=== PATIENT | female | born 1975 | race Caucasian/White ===

== ENCOUNTER → 2019-12-29 | Outpatient (CLI) | payer BC, OTHER ==
[~2019-12-29] VITALS: Ht 170.2 cm; Wt 77.1 kg
[~2019-12-29] MED LIST: CLARITIN10 MG PO; FLONASE 0.05%50 MCG NASAL; LISINOPRIL2.5 MG PO; NEURONTIN100 MG PO; NEURONTIN300 MG PO; OXYCODONE-ACET1 EACH PO; STOOL SOFTENER100 M1 PO; TIZANIDINE HCL2 M1 PO; ULTRAM50 MG PO
[2019-12-29 14:57] VITALS: BP 129/83
--- NOTE | 2019-12-29 15:46 | NUR ---
Pain Clinic Assessment: 1. History of Osteoarthritis: Not Applicable History of Rheumatoid Arthritis: Not Applicable 2. Height: 5 ft. 7 in. 170.2 cm. Weight: 170.0 lb. oz. 77.112 kg. Patient's BMI: 26.6 3. Vital Signs: BP: 129/83 Pulse: 81 Resp: 14 Temp: 02 Sat: 100 ECG Mon: 4. Pain Intensity: 5 5. Fall Risk: Dizziness: Needs help standing or walking: Fallen in the last 3 months: Fall risk comments: 6. Patient on Blood Thinner: None 7. History of Hypertension: Y 8. Opioid Therapy greater than 6 weeks: N Opiate Contract Signed: 9. Risk Assessment Tool Provided: LOW RISK 10. Functional Assessment Tool: 11. Recreational Drug Use: Unknown Drug Type: Tobacco Use: Never Smoker Tobacco Type: Amount or Packs/day: How Many Years: Alcohol Use: Yes Frequency: Monthly Quant: 1-2
== END | disposition home or self-care (01) ==
LOC: PAIN 07:01
PROVIDERS: ATTEND Anesthesiology Pain Medicine
DX: M54.16 Radiculopathy, lumbar region (principal); M48.061 Spinal stenosis, lumbar region without neurogenic claudication; I10 Essential (primary) hypertension; Z98.890 Other specified postprocedural states; Z79.899 Other long term (current) drug therapy; Z88.8 Allergy status to other drugs, medicaments and biological substances